=== PATIENT | female | born 1965 | race African-American/Black ===

== ENCOUNTER 2017-08-21 08:20 | Day surgery (SDC) | payer OTHER ==
[2017-08-20 12:30] VITALS: BMI 26.6
[2017-08-21 08:48] LABS: BASO % 1.2 % (0-2.0); EOS % 4.5 % (0-4.5); HEMATOCRIT 33.3 % (32.4-45.2); LYMPH % 30.3 % (8-40); MEAN CELL VOLUME 75.7 fl (80-96); MEAN PLT VOLUME 8.1 fl (7.5-11.1); MONO % 10.2 % (3.8-10.2); NEUT % 53.8 % (42.8-82.8); PLATELET COUNT 295 K/MM3 (134-434); RBC 4.39 M/mm3 (3.60-5.2); RDW 22.5 % (11.6-15.6); WHITE BLOOD COUNT 5.7 K/mm3 (4.0-10.0)
[2017-08-21 09:19] LABS: ALBUMIN 3.6 g/dl (3.4-5.0); ANION GAP 8 (8-16); BLOOD UREA NITROGEN 11 mg/dL (7-18); CALCIUM 8.8 mg/dL (8.5-10.1); CHLORIDE 108 mmol/L (98-107); CO2 25 mmol/L (21-32); GLUCOSE,RANDOM 93 mg/dL (74-106); POTASSIUM 4.1 mmol/L (3.5-5.1); SODIUM 141 mmol/L (136-145)
[2017-08-21 09:20] LABS: ALK PHOS 69 U/L (45-117); BILIRUBIN,TOTAL 0.4 mg/dL (0.2-1.0); CREATININE 0.9 mg/dL (0.55-1.02); SGOT/AST 17 U/L (15-37); SGPT/ALT 25 U/L (12-78)
[2017-08-21 09:29] LABS: PROTHROMBIN TIME (PATIENT) 11.3 SEC (9.7-13.0)
[2017-08-21] MEDS ORDERED: ONDANSETRON 4 MG/2 ML VIAL ONE (13:49)
[2017-08-21] MEDS ORDERED: HYDROmorphone *PCA* 10MG/50ML DISP.SYRIN PCA ONE (13:49)
[2017-08-21] MEDS: HYDROmorphone *PCA* 10MG/50ML DISP.SYRIN PCA SCH (14:04)
[2017-08-21] MEDS ORDERED: DEXTROSE 5%-0.45% SALINE 1,000 ML IV SCH ×3 (16:45→18:36)
--- NOTE | 2017-08-21 16:49 | HP ---
CHIEF COMPLAINT: s/p embolisation for fibroid uterus mennorhagia HISTORY OF PRESENT ILLNESS: 52 y/o F with no pmh was kept for 24 hour observation after IR embolisation for menorrhagia. Patent states that she was diagnosed with fibroid uterous many years ago and started having excessive bleeding from last 2-3 months, using many pads, last 7-8 days and use to occur after every 11- 12 days. Patient states that she was advised for embolisation by her ob-senior care manager. Now patieent states that she has some abdominal pain, cramping in nature, 6/10 in intensity, feels like her mensis pain, non radiaing, gets better with her cloth dyeing range tender pump. H/O Anemia present and is on iron supplement. Denies nausea, vomiting, burning micturation, constipation, diarrhoea, sob, fever, chills. dizziness, palpitations, no h/o blood transfusion. Unmarried, no kids Patient admitted from [facility] s/p embolisation Patient on cloth dyeing range tender pump Recent Travel:no PAST MEDICAL HISTORY: no PAST SURGICAL HISTORY: no Social History: Smoking:no Alcohol:no Drugs: no Family History: no relevant family history Allergies No Known Allergies Allergy (Verified 08/21/17 08:58) HOME MEDICATIONS: Home Medications Medication Instructions Recorded Ferrous Bis-Glycinate Chelate 10 mg PO TID 08/20/17 REVIEW OF SYSTEMS CONSTITUTIONAL: Absent: fever, chills, diaphoresis, generalized weakness, malaise, loss of appetite, weight change HEENT: Absent: rhinorrhea, nasal congestion, throat pain, throat swelling, difficulty swallowing, mouth swelling, ear pain, eye pain, visual changes CARDIOVASCULAR: Absent: chest pain, syncope, palpitations, irregular heart rate, lightheadedness , peripheral edema RESPIRATORY: Absent: cough, shortness of breath, dyspnea with exertion, orthopnea, wheezing, stridor, hemoptysis GASTROINTESTINAL: as above GENITOURINARY: Absent: dysuria, frequency, urgency, hesitancy, hematuria, flank pain, genital pain MUSCULOSKELETAL: Absent: myalgia, arthralgia, joint swelling, back pain, neck pain SKIN: Absent: rash, itching, pallor HEMATOLOGIC/IMMUNOLOGIC: Absent: easy bleeding, easy bruising, ENDOCRINE: Absent: unexplained weight gain, NEUROLOGIC: Absent: headache, focal weakness or paresthesias, PSYCHIATRIC: Absent: anxiety, depression, PHYSICAL EXAMINATION Vital Signs - 24 hr 08/21/17 08/21/17 08/21/17 08:58 09:00 11:49 Temperature 98.4 F Pulse Rate 63 67 Pulse Rate [ Left Upper Arm] Respiratory 18 16 Rate Respiratory Rate [Left Upper Arm] Blood Pressure 132/92 142/82 Blood Pressure [Left Upper Arm ] O2 Sat by Pulse 100 100 Oximetry (%) O2 Sat by Pulse Oximetry (%) [ Left Upper Arm] 08/21/17 08/21/17 08/21/17 12:12 12:22 12:32 Temperature Pulse Rate Pulse Rate [ 61 51 L 53 L Left Upper Arm] Respiratory Rate Respiratory 16 16 16 Rate [Left Upper Arm] Blood Pressure Blood Pressure 145/78 141/86 141/86 [Left Upper Arm ] O2 Sat by Pulse Oximetry (%) O2 Sat by Pulse 100 100 100 Oximetry (%) [ Left Upper Arm] 08/21/17 08/21/17 08/21/17 12:42 12:52 13:02 Temperature Pulse Rate Pulse Rate [ 48 L 53 L 51 L Left Upper Arm] Respiratory Rate Respiratory 16 16 16 Rate [Left Upper Arm] Blood Pressure Blood Pressure 136/80 116/72 118/73 [Left Upper Arm ] O2 Sat by Pulse Oximetry (%) O2 Sat by Pulse 100 100 100 Oximetry (%) [ Left Upper Arm] 08/21/17 08/21/17 08/21/17 13:12 13:20 13:45 Temperature 98.6 F Pulse Rate 60 52 L Pulse Rate [ 50 L Left Upper Arm] Respiratory 16 16 Rate Respiratory 16 Rate [Left Upper Arm] Blood Pressure 149/84 150/80 Blood Pressure 132/82 [Left Upper Arm ] O2 Sat by Pulse 100 100 Oximetry (%) O2 Sat by Pulse 100 Oximetry (%) [ Left Upper Arm] 08/21/17 08/21/17 08/21/17 14:00 14:15 14:30 Temperature Pulse Rate 53 L 55 L 52 L Pulse Rate [ Left Upper Arm] Respiratory 19 20 18 Rate Respiratory Rate [Left Upper Arm] Blood Pressure 154/87 156/82 158/80 Blood Pressure [Left Upper Arm ] O2 Sat by Pulse 100 100 100 Oximetry (%) O2 Sat by Pulse Oximetry (%) [ Left Upper Arm] 08/21/17 14:45 Temperature Pulse Rate 54 L Pulse Rate [ Left Upper Arm] Respiratory 16 Rate Respiratory Rate [Left Upper Arm] Blood Pressure 156/80 Blood Pressure [Left Upper Arm ] O2 Sat by Pulse 100 Oximetry (%) O2 Sat by Pulse Oximetry (%) [ Left Upper Arm] GENERAL: Awake, alert, and fully oriented, in no acute distress. HEAD: Normal with no signs of trauma. EARS, Moist mucous membranes. NECK: Normal range of motion, supple without lymphadenopathy, LUNGS: Breath sounds equal, clear to auscultation bilaterally. No wheezes, and no crackles. No accessory muscle use. HEART: Regular rate and rhythm, normal S1 and S2 ABDOMEN: Soft, nontender, not distended, no guarding, no rebound, no masses. MUSCULOSKELETAL: Normal range of motion at all joints. No bony deformities or tenderness. UPPER EXTREMITIES: 2+ pulses, warm, well-perfused. No cyanosis. No clubbing. No peripheral edema. LOWER EXTREMITIES: warm, well-perfused. No calf tenderness. No peripheral edema. NEUROLOGICAL: Cranial nerves II-XII intact. Normal speech. PSYCHIATRIC: Cooperative. Good eye contact. SKIN: Warm, dry, Laboratory Results - last 24 hr 08/21/17 08/21/17 08/21/17 08:35 08:35 08:35 WBC 5.7 RBC 4.39 Hgb 11.0 Hct 33.3 MCV 75.7 L MCH 25.0 L MCHC 33.0 RDW 22.5 H Plt Count 295 MPV 8.1 Absolute Neuts (auto) 3.1 Neutrophils % 53.8 Lymphocytes % 30.3 Monocytes % 10.2 Eosinophils % 4.5 Basophils % 1.2 Nucleated RBC % 0 PT with INR 11.30 INR 1.00 Sodium 141 Potassium 4.1 Chloride 108 H Carbon Dioxide 25 Anion Gap 8 BUN 11 Creatinine 0.9 Creat Clearance w eGFR > 60 Random Glucose 93 Calcium 8.8 Total Bilirubin 0.4 AST 17 ALT 25 Alkaline Phosphatase 69 Total Protein 7.0 Albumin 3.6 Urine HCG, Qual 08/21/17 08:36 WBC RBC Hgb Hct MCV MCH MCHC RDW Plt Count MPV Absolute Neuts (auto) Neutrophils % Lymphocytes % Monocytes % Eosinophils % Basophils % Nucleated RBC % PT with INR INR Sodium Potassium Chloride Carbon Dioxide Anion Gap BUN Creatinine Creat Clearance w eGFR Random Glucose Calcium Total Bilirubin AST ALT Alkaline Phosphatase Total Protein Albumin Urine HCG, Qual Negative ASSESSMENT/PLAN: 52 y/o F with no pmh was kept for 24 hour observation after IR embolisation for menorrhagia s/p embolisation for fibroid uterous with menorrhagia. Monitor vitals watch for bleed per vagina. Patinet might pass some old clots, co-relate with vitals and haemoglobin monitor haemoglobin pain control; patient on cloth dyeing range tender pump zofran for nausea and vomiting IV fluid d51/2 ns start diet from dinner. monitor groin for bleeding. keep head end elevated IR consult ob-senior care manager consult Fluid: d51/2 ns electrolyte; repeat in am nutrition: regular diet from dinner dvt pro: scd gi pro: not required dispo: medsurg Visit type - Emergency Visit Emergency Visit: No - New Patient This patient is new to me today: Yes Date on this admission: 08/21/17 - Critical Care Critical Care patient: No
[2017-08-21] MEDS ORDERED: ONDANSETRON 4 MG/2 ML VIAL IVPB PRN (17:06)
[2017-08-21] MEDS ORDERED: amLODIPine BESYLATE 5 MG TABLET (FP) PO ONE (17:30)
[2017-08-21] MEDS ORDERED: ONDANSETRON 4 MG/2 ML VIAL IVPUSH PRN (18:24)
[2017-08-21] MEDS ORDERED: PROMETHAZINE HCL 25 MG/1 ML VIAL IVPB PRN (18:25)
[2017-08-21] MEDS ORDERED: NALOXONE HCL 0.4 MG/ML VIAL IVPUSH PRN (18:27)
[2017-08-21] MEDS ORDERED: DEXAMETHASONE SOD PHOSPHATE 4 MG/1 ML VIAL IVPUSH ONE (18:30)
--- NOTE | 2017-08-21 18:37 | PN ---
Teaching Attending Note Name of Resident: Seun James ATTENDING PHYSICIAN STATEMENT I saw and evaluated the patient. I reviewed the resident's note and discussed the case with the resident. I agree with the resident's findings and plan as documented. SUBJECTIVE: OBJECTIVE: Vital Signs Temperature 98.6 F 08/21/17 13:45 Pulse Rate 60 08/21/17 17:30 Respiratory Rate 18 08/21/17 17:30 Blood Pressure 176/80 08/21/17 17:30 O2 Sat by Pulse Oximetry (%) 100 08/21/17 17:30 CBCD WBC 5.7 K/mm3 (4.0-10.0) 08/21/17 08:35 RBC 4.39 M/mm3 (3.60-5.2) 08/21/17 08:35 Hgb 11.0 GM/dL (10.7-15.3) 08/21/17 08:35 Hct 33.3 % (32.4-45.2) 08/21/17 08:35 MCV 75.7 fl (80-96) L 08/21/17 08:35 MCHC 33.0 g/dl (32.0-36.0) 08/21/17 08:35 RDW 22.5 % (11.6-15.6) H 08/21/17 08:35 Plt Count 295 K/MM3 (134-434) 08/21/17 08:35 MPV 8.1 fl (7.5-11.1) 08/21/17 08:35 CMP Sodium 141 mmol/L (136-145) 08/21/17 08:35 Potassium 4.1 mmol/L (3.5-5.1) 08/21/17 08:35 Chloride 108 mmol/L (98-107) H 08/21/17 08:35 Carbon Dioxide 25 mmol/L (21-32) 08/21/17 08:35 Anion Gap 8 (8-16) 08/21/17 08:35 BUN 11 mg/dL (7-18) 08/21/17 08:35 Creatinine 0.9 mg/dL (0.55-1.02) 08/21/17 08:35 Creat Clearance w eGFR > 60 (>60) 08/21/17 08:35 Random Glucose 93 mg/dL (74-106) 08/21/17 08:35 Calcium 8.8 mg/dL (8.5-10.1) 08/21/17 08:35 Total Bilirubin 0.4 mg/dL (0.2-1.0) 08/21/17 08:35 AST 17 U/L (15-37) 08/21/17 08:35 ALT 25 U/L (12-78) 08/21/17 08:35 Alkaline Phosphatase 69 U/L (45-117) 08/21/17 08:35 Total Protein 7.0 g/dl (6.4-8.2) 08/21/17 08:35 Albumin 3.6 g/dl (3.4-5.0) 08/21/17 08:35 Current Medications Generic Name Dose Route Start Last Admin Trade Name Freq PRN Reason Stop Dose Admin Diphenhydramine HCl 12.5 mg 08/21/17 18:24 Benadryl Injection - IVPUSH Q4H PRN NAUSEA Diphenhydramine HCl 50 mg 08/21/17 18:34 Benadryl Injection - IVPUSH PRN PRN ITCHING Hydromorphone HCl 10 mg 08/21/17 18:15 Dilaudid Trainmaster - [employer] 08/28/17 18:15 [employer]ER JOSELUIS Protocol Dextrose/Sodium Chloride 1,000 mls @ 42 mls/hr 08/21/17 18:36 D5-1/2ns - IV ASDIR JOSELUIS Naloxone HCl 0.4 mg 08/21/17 18:27 Narcan - IVPUSH PRN PRN RESPIRATORY DEPRESSION IF NEED Ondansetron HCl 4 mg 08/21/17 17:06 Zofran Injection IVPB Q8H PRN NAUSEA Ondansetron HCl 4 mg 08/21/17 18:24 Zofran Injection IVPUSH Q4H PRN NAUSEA AND/OR VOMITING Promethazine HCl 12.5 mg 08/21/17 18:25 Phenergan Injection - IVPB Q6H PRN NAUSEA Home Medications Medication Instructions Recorded Ferrous Bis-Glycinate Chelate 10 mg PO TID 08/20/17 PE: per resident's note ASSESSMENT/PLAN: Patient is a 52 y/o F with no pmhx , had an was kept for 24 hour observation after IR embolisation for menorrhagia #POD #0 s/p embolisation for fibroid uterus for menorrhagia by IR IVF, [employer] INS[employer]OR [employer] P[employer]ER Dilaudid as per pain management DVT Px: scd dispo: medsurg
[2017-08-22] MEDS: HYDROmorphone *PCA* 10MG/50ML DISP.SYRIN PCA SCH (04:29)
[2017-08-22 08:47] LABS: HEMATOCRIT 34.8 % (32.4-45.2); HEMOGLOBIN 11.8 GM/dL (10.7-15.3); MCH 25.3 pg (25.7-33.7); MCHC 33.8 g/dl (32.0-36.0); MEAN CELL VOLUME 74.9 fl (80-96); MEAN PLT VOLUME 8.6 fl (7.5-11.1); PLATELET COUNT 357 K/MM3 (134-434); RBC 4.64 M/mm3 (3.60-5.2); RDW 22.4 % (11.6-15.6); WHITE BLOOD COUNT 10.6 K/mm3 (4.0-10.0)
[2017-08-22] MEDS ORDERED: oxyCODONE HCL 5 MG TABLET PO PRN ×2 (09:12)
[2017-08-22 09:17] LABS: CHLORIDE 96 mmol/L (98-107); POTASSIUM 3.9 mmol/L (3.5-5.1); SODIUM 132 mmol/L (136-145)
[2017-08-22 09:35] LABS: ANION GAP 14 (8-16); BLOOD UREA NITROGEN 7 mg/dL (7-18); CO2 22 mmol/L (21-32); CREATININE 0.7 mg/dL (0.55-1.02); GLUCOSE,RANDOM 108 mg/dL (74-106); MAGNESIUM 1.8 mg/dL (1.8-2.4); PHOSPHOROUS 4.3 mg/dL (2.5-4.9)
--- NOTE | 2017-08-22 10:13 | CON.OBG ---
Consult Consult Specialty:: gynecology Reason for Consultation:: SP [place] with IR for fibroids - History of Present Illness Chief Complaint: Abdominal pain History of Present Illness: 52 yo known to me with leiomyomatous uterus with bleeding and pain sp [place]. Pt doing well Pt seen at bedside pain improved no vomiting - History Source History Provided By: Patient - Past Medical History ...LMP: 07/26/17 ...LMP Comment: IRREGULAR ...: No - Alcohol/Substance Use Hx Alcohol Use: Yes (SOCIALLY) History of Substance Use: reports: None - Smoking History Smoking history: Never smoked Aproximately how many cigarettes per day: 0 Home Medications - Allergies Allergies/Adverse Reactions: Allergies Allergy/AdvReac Type Severity Reaction Status Date / Time No Known Allergies Allergy Verified 08/21/17 08:58 - Home Medications Home Medications: Ambulatory Orders Ferrous Bis-Glycinate Chelate 10 mg PO TID 08/20/17 Review of Systems - Review of Systems Constitutional: reports: No Symptoms Eyes: reports: No Symptoms HENT: reports: No Symptoms Neck: reports: No Symptoms Cardiovascular: reports: No Symptoms Respiratory: reports: No Symptoms Gastrointestinal: reports: Abdominal Pain Genitourinary: reports: No Symptoms Breasts: reports: No Symptoms Reported Musculoskeletal: reports: No Symptoms Integumentary: reports: No Symptoms Neurological: reports: No Symptoms Endocrine: reports: No Symptoms Hematology/Lymphatic: reports: No Symptoms Psychiatric: reports: No Symptoms 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
[2017-08-22] MEDS ORDERED: FERROUS SO4 325 MG TABLET (FP) PO SCH (14:00)
[2017-08-22 17:21] VITALS: BP 166/93; PULSE 67; TEMP 98.8
--- NOTE | 2017-08-22 18:13 | DS ---
Physical Exam: SUBJECTIVE: Patient seen and examined OBJECTIVE: Vital Signs Period Temp Pulse Resp BP Sys/Heard Pulse Ox Last 24 Hr 97.8 F-99.3 F 61-82 18-20 134-167/69-106 99-100 PHYSICAL EXAM GENERAL: The patient is awake, alert, and fully oriented, in no acute distress. HEAD: Normal with no signs of trauma. EYES: PERRL, extraocular movements intact, sclera anicteric, conjunctiva clear. ENT: Ears normal, nares patent, oropharynx clear without exudates, moist mucous membranes. NECK: Trachea midline, full range of motion, supple. LUNGS: Breath sounds equal, clear to auscultation bilaterally, no wheezes, no crackles, no accessory muscle use. HEART: Regular rate and rhythm, S1, S2 without murmur, rub or gallop. ABDOMEN: Soft, nontender, nondistended, normoactive bowel sounds, no guarding, no rebound, no hepatosplenomegaly, no masses. EXTREMITIES: 2+ pulses, warm, well-perfused, no edema. NEUROLOGICAL: Cranial nerves II through XII grossly intact. Normal speech, gait not observed. PSYCH: Normal mood, normal affect. SKIN: Warm, dry, normal turgor, no rashes or lesions noted. LABS Laboratory Results - last 24 hr 08/22/17 08/22/17 07:09 07:09 WBC 10.6 H D RBC 4.64 Hgb 11.8 Hct 34.8 MCV 74.9 L MCH 25.3 L MCHC 33.8 RDW 22.4 H Plt Count 357 D MPV 8.6 Sodium 132 L Potassium 3.9 Chloride 96 L Carbon Dioxide 22 Anion Gap 14 BUN 7 Creatinine 0.7 Random Glucose 108 H Calcium 9.0 Phosphorus 4.3 Magnesium 1.8 HOSPITAL COURSE: Date of Admission:08/21/17 Date of Discharge: 08/22/17 Discharge Summary Reason For Visit: UTERINE FIBROID EMBOLIZATION Current Active Problems Fibroid (bleeding) (uterine) (Acute) Status post embolization of uterine artery (Acute) Condition: Improved - Instructions Diet, Activity, Other Instructions: You were seen here for your fibroids. You received a procedure to help stop the bleeding that they were causing. It is normal to pass some clots in the short- term while the bleeding is resolving, however if you start to bleed excessively (more than 2 pads soaked with blood in 2 hours) you must return to the ER immediately. MEDICATIONS: Due to your pain we will send you on Oxycodone 5mg to take NEEDED every 6hours for the short-term --This has been sent to your pharmacy --You should not drive, operate heavy machinery, climb ladders, etc. while on this medication as it impairs your judgement and you can be sleepy from it FOLLOW-UP: You should follow-up with Dr. Low in her clinic in the next 2-3 weeks for re-evaluation of your fibroids If you being to bleed again as above (more than 2 pads soaked with blood in 2 hours) immediately come back to the ER for furthe evaluation Please follow-up with your primary medical doctor in 1 week as well. Referrals: Alison Low MD [Staff Physician] - Disposition: HOME - Home Medications Comprehensive Discharge Medication List: Ambulatory Orders Ferrous Bis-Glycinate Chelate 10 mg PO TID 08/20/17 oxyCODONE HCL [Roxicodone -] 5 mg PO Q6H PRN #8 tablet MDD 20 08/22/17
--- NOTE | 2017-08-22 19:20 | PN ---
Teaching Attending Note Name of Resident: [place] ATTENDING PHYSICIAN STATEMENT I saw and evaluated the patient. I reviewed the resident's note and discussed the case with the resident. I agree with the resident's findings and plan as documented. SUBJECTIVE: no fever or chills . abd pain improved no vaginal bleed OBJECTIVE: NA D CV : RRR Lungs: CTAB ext: no edema ABd: soft, minimal TTP in suprapubic area ASSESSMENT AND PLAN: 52 y/o lady with h/o fibroids who presented for embolization and was monitored over night. she is doing well . stable hB . minmal pain , tolerated po oxy off ANALYTICAL CONSULTANT. 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
== END 2017-08-22 18:52 | disposition home or self-care (01) ==
LOC: JRADIR 08:20 → SUATTDRO 08:20 → J8W 18:15 → JRADIR 08-22 18:52
PROVIDERS: ATTEND Internal Medicine
PROC: 04LF3DU Occlusion of Left Uterine Artery with Intraluminal Device, Percutaneous Approach (ICD-10-PCS; principal; 2017-08-21)
PROC: 04LE3DT Occlusion of Right Uterine Artery with Intraluminal Device, Percutaneous Approach (ICD-10-PCS; 2017-08-21)
DX: D25.0 Submucous leiomyoma of uterus (principal); D25.1 Intramural leiomyoma of uterus; N92.0 Excessive and frequent menstruation with regular cycle
CPT/HCPCS: 36415; 37243; 80048; 80053; 83735; 84100; 84703; 85025; 85027; 85610; C1760; C1769; C1887